=== PATIENT | male | born 1990 | race Caucasian/White ===

== ENCOUNTER 2019-01-12 21:13 | Emergency (ER) | payer SELFPAY ==
[~2019-01-12] VITALS: Ht 188 cm; Wt 64.9 kg
[2019-01-12] MEDS ORDERED: BACTRIM DS TAB1 EACH PO (22:16)
== END 2019-01-12 22:31 | disposition home or self-care (01) ==
LOC: ED 21:13
PROC: 0H9KXZZ Drainage of Right Lower Leg Skin, External Approach (ICD-10-PCS; principal; 2019-01-12)
DX: L02.415 Cutaneous abscess of right lower limb (principal); F17.200 Nicotine dependence, unspecified, uncomplicated
CPT/HCPCS: 10060; 87070; 87077; 87186; 87205; 99283-25

== ENCOUNTER 2021-12-12 11:23 | Emergency (ER) | payer BC ==
[~2021-12-12] VITALS: Ht 188 cm; Wt 70.2 kg
[~2021-12-12 11:23] MED LIST: BACTRIM DS TAB1 EACH PO
[2021-12-12] MEDS ORDERED: REMERON15 MG (14:10)
[2021-12-12] MEDS ORDERED: DOXYCYCLINE HY100 MG PO (14:22)
== END 2021-12-12 15:53 | disposition home or self-care (01) ==
LOC: ED 11:23
DX: L02.01 Cutaneous abscess of face (principal); F17.200 Nicotine dependence, unspecified, uncomplicated; Z79.899 Other long term (current) drug therapy
CPT/HCPCS: 10060; 99283-25

== ENCOUNTER 2024-12-11 02:50 | Inpatient (IN) | payer OTHER ==
[~2024-12-11] VITALS: Ht 188 cm; Wt 73.3 kg
[2024-12-11] VITALS (39 sets, daily range): BP systolic 84–122; BP diastolic 45–79
[~2024-12-11 02:50] MED LIST changes: +DOXYCYCLINE HY100 MG PO; +REMERON15 MG; +TRAMADOL HCL50 MG PO
[2024-12-11 03:04] LABS: BASOPHILS 0.5 % (0.2-1.2); EOSINOPHILS 1.7 % (0.8-7.0); LYMPHOCYTES 26.3 % (21.8-53.1); MCH 31.9 PG (25.7-32.2); MCHC 33.1 g/dL (32.3-36.5); MCV 96.2 fL (79.0-92.2); MONOCYTES 8.6 % (5.3-12.2); NEUTROPHILS 62.5 % (34.0-67.9); RBC 4.52 M/uL (4.63-6.08)
[2024-12-11] MEDS ORDERED: SODIUM CHLORIDE 0.9% 1,000 ML IV SCH (03:15)
[2024-12-11 03:27] LABS: ALCOHOL, MEDICAL 181 ng/dL (<3); ALT (SGPT) 19 U/L (14-59); AST (SGOT) 16 U/L (15-37); GLOMERULAR FILTRATION RATE,EST 105 mL/min (>60); PROTEIN, TOTAL 7.3 g/dL (6.4-8.2); TSH, 3RD GENERATION 0.978 uIU/mL (0.358-3.740); UREA NITROGEN 14 mg/dL (7-18)
[2024-12-11 03:36] LABS: BLOOD/HGB, URINE NEGATIVE (Negative); KETONE, URINE NEGATIVE (Negative); LEUK ESTERASE, URINE NEGATIVE (negative); NITRITE, URINE NEGATIVE (negative)
[2024-12-11 03:59] LABS: AMPHETAMINES, URINE NEGATIVE (NEGATIVE); BARBITURATES, URINE NEGATIVE (NEGATIVE); BENZODIAZEPINE, URINE NEGATIVE (NEGATIVE); CANNABINOID, URINE POSITIVE (NEGATIVE); COCAINE, URINE POSITIVE (NEGATIVE); ECSTASY, URINE NEGATIVE (NEGATIVE); FENTANYL, URINE NEGATIVE (NEGATIVE); METHADONE, URINE NEGATIVE (NEGATIVE); OPIATES, URINE NEGATIVE (NEGATIVE); OXYCODONE, URINE NEGATIVE (NEGATIVE); PHENCYCLIDINE, URINE NEGATIVE (NEGATIVE)
[2024-12-11] MEDS ORDERED: LACTATED RINGER'S 1,000 ML IV SCH (09:15)
[2024-12-11] MEDS ORDERED: ACETAMINOPHEN 325 MG TAB PO PRN (09:15)
--- NOTE | 2024-12-11 09:42 | NUR ---
INTO ER TO SPEAK WITH STAFF. [facility]CS AWARE OF PATIENT AND WILL MAKE CONTACT WHEN THE PATIENT HE IS MEDICALLY CLEARED. PER ER MD AND STAFF PATIENT HAS GIVEN PERMISSION TO SPEAK WITH HIS MOTHER BAYLEE. SPOKE WITH BAYLEE, SHE STATES THIS IS THE PATIENT SECOND SUICIDE ATTEMPT VIA OD. REPORTS PATIENT ATEEMPT SUICIDE ON MOTHER DAY WITH FENTANYL. MOTHER STATES PATIENT HAS BEEN EXPERIANCING ISSUES WITH SUICIDAL IDEATION SINCE MARCH 2024. HE CURRENTLY LIVES WITH HIS BROTHER, BUT HIS BROTHER IS NOT ABLE TO SUPERVISE HIM AT ALL TIMES. UPDATED ABOUT THE PLAN TO ADMIT TO CCU. UPDATE REGARDING POSSIBE TRANSFER TO [facility] WHEN MEDICALLY CLEARED. CCU STAFF UPDATED.
--- NOTE | 2024-12-11 10:20 | NUR ---
REPORT RECEIVED FROM MINE MCBRIDE. PT BROUGHT TO ROOM 127 CCU ADMITTED FOR INTENTIONAL OD OF CLONIDINE WITH HYPOTENSION. PT IS AROUSABLE, ALERT AND ORIENTED, DROWSY. DOPAMINE DRIP IS INFUSING AT 5MCG/KG/MIN, WILL TITRATE DOWN TO 4 MCG/KG/MIN, BP 122/73, HR 80'S, SINUS RHYTHM. PT DENIES ANY SX AT THIS TIME, DENIES PAIN OR SOB. HE WENT BACK TO SLEEP QUICKLY AFTER GETTING HIMSELF FROM GURNEY TO BED, WAS SLIGHTLY UNSTEADY ON FEET. PT IS ON DIRECT OBS SUICIDE PRECAUTIONS PER POLICY AT THIS TIME.
--- NOTE | 2024-12-11 11:11 | NUR ---
CALLED [facility], SPOKE WITH RADHA. DISCUSSED PATIENT NEED FOR [facility]UTE [facility]. PER RADHA THEY DO HAVE BEDS AVAILABLE AT THIS TIME. REQUESTING REFERRAL BE SENT WHEN PATIENT IS MEDICALLY CLEARED. WILL NEED COVID TEST PRIOR TO ADMISSION, WILL DISCUSS WITH MD.
[2024-12-11] MEDS ORDERED: PHARMACY RENAL DOSE ADJUSTMENT 1 DOSE MISC PO SCH (12:00)
--- NOTE | 2024-12-11 12:05 | NUR ---
MOM IN TO SEE PT. DIRECT OBS CONTINUES. PT DOES NOT WANT HIS LUNCH.
--- NOTE | 2024-12-11 13:54 | NUR ---
PT CONT TO REST IN BED, STILL VERY DROWSY, CONT WITH 1:1 OBS.
--- NOTE | 2024-12-11 14:25 | NUR ---
CALL FROM KORTNEY WITH [facility], HE STATES THEY WILL BE COMING OVER TO TALK WITH PTS FAMILY MEMBER AND WILL STOP BY TO SEE IF PT IS WANTING TO TALK.
--- NOTE | 2024-12-11 15:50 | NUR ---
SPOKE WITH KORTNEY ([facility]) LET HIM KNOW WE HAVE THE PACKET FILLED OUT FOR [facility] AND THEY ARE WILLING TO ACCEPT ONCE PATIENT IS MEDICALLY CLEARED. LET HIM KNOW WE WOULD REACH OUT IF WE HAVE QUESTIONS OR CONCERNS. 3620- SPOKE WITH THE PATIENT. PATIENT AGREEABLE TO GO [facility].
--- NOTE | 2024-12-11 15:53 | NUR ---
DOPAMINE TITRATED DOWN. CCS HAS JUST FINISHED WITH SEEING PT, DISCUSSED WITH CASE MANAGEMENT. MD IN ROOM TO SEE PT, SHOWN RECENT EKG. PT CONT TO DENY NEEDS, DENIES PAIN. 1:1 OBS CONTINUES.
--- NOTE | 2024-12-11 15:58 | EKG ---
[facility] [address] [facility] [place] [address] Signed Otherwise normal ECG No previous ECGs available Confirmed by Sarah Norton MD () on 12/11/2024 3:58:28 PM Electronically Signed By: SARAH NORTON MD 12/11/24 1558 PATIENT NAME: KAMARI ACOSTA MOJICA Electrocardiogram DATE OF : [birth year] PHYSICIAN: SARAH NORTON MD REPORT #: [id number] REPORT IS CONFIDENTIAL AND NOT TO BE RELEASED WITHOUT AUTHORIZATION
--- NOTE | 2024-12-11 15:59 | EKG ---
[facility] [address] [facility] [place] [address] Signed Normal sinus rhythm ST elevation, probably due to early repolarization Borderline ECG When compared with ECG of 11-DEC-2024 03:00, T wave amplitude has increased in Lateral leads Confirmed by Sarah Norton MD () on 12/11/2024 3:59:50 PM Electronically Signed By: SARAH NORTON MD 12/11/24 1559 PATIENT NAME: KAMARI ACOSTA MOJICA Electrocardiogram DATE OF : [birth year] PHYSICIAN: SARAH NORTON MD REPORT #: [id number] REPORT IS CONFIDENTIAL AND NOT TO BE RELEASED WITHOUT AUTHORIZATION
[2024-12-11] MEDS ORDERED: NICOTINE 21 MG/24 HR 1 EA TDSY TD SCH (16:01)
[2024-12-11] MEDS ORDERED: FOLIC ACID 1 MG/0.2 ML ML IV SCH (16:02)
[2024-12-11] MEDS ORDERED: THIAMINE HCL 200 MG/2 ML VIAL IV SCH (16:02)
--- NOTE | 2024-12-11 16:04 | NUR ---
MED REC COMPLETE
--- NOTE | 2024-12-11 19:40 | NUR ---
HANDOFF REPORT RECEIVED FROM DAY SHIFT RN. PATIENT LAYING AWAKE IN BED WATCHING TV. 1:1 SITTER AT BEDSIDE FOR PATIENT SAFETY. NO NEEDS AT THIS TIME.
--- NOTE | 2024-12-11 20:18 | NUR ---
DOPAMINE GTT TURNED OFF PER MEDICATION FLOWSHEET. IVF INFUSING PER EMAR. IV SITE WNL. 1:1 SITTER REMAINS AT BEDSIDE, PATIENT HAS NO NEEDS AT THIS TIME.
--- NOTE | 2024-12-11 21:32 | NUR ---
PATIENT RESTING IN BED WITH EYES CLOSED, RR 16. PATIENT REMAINS OFF DOPAMINE GTT, LAST BP 106/79 MAP 87. PATIENT REMAINS ON ROOM AIR, SPO2 98%. IVF INFUSING PER EMAR, SITE WNL. 1:1 SITTER REMAINS AT BEDSIDE, PATIENT HAS NO NEEDS AT THIS TIME.
--- NOTE | 2024-12-11 23:05 | NUR ---
patient awake, repositioned in bed. patient denies any needs at this time. patient has call light in reach, bed alarm on.
--- NOTE | 2024-12-11 23:20 | NUR ---
patient awake, states he had a bad dream. patient provided with orange juice per request. no further needs at this time. vital signs stable. IVF infusing per EMAR, site WNL. 1:1 sitter remains at bedside.
[2024-12-12] VITALS (12 sets, daily range): BP systolic 105–126; BP diastolic 59–88
--- NOTE | 2024-12-12 00:13 | NUR ---
patient awake, patient states he is unable to sleep. patient provided with a warm blanket. 1:1 sitter remains at bedside. no further needs at this time
[2024-12-12] MEDS ORDERED: MELATONIN 3 MG TAB PO ONE (00:45)
--- NOTE | 2024-12-12 00:52 | NUR ---
CALLED AND UPDATED THAT PATIENT IS UNABLE TO SLEEP. NEW ORDER RECEIVED FOR MELATONIN PER EMAR, ORDER VERIFIED VIA REPEAT BACK METHOD.
--- NOTE | 2024-12-12 02:00 | NUR ---
patient resting in bed with eyes closed, respirations even and unlabored. patient has no needs at this time. 1:1 sitter remains at bedside. patient vital signs stable.
[2024-12-12 05:23] LABS: BASOPHILS 0.4 % (0.2-1.2); EOSINOPHILS 1.7 % (0.8-7.0); LYMPHOCYTES 18.4 % (21.8-53.1); MCH 32.2 PG (25.7-32.2); MCHC 33.0 g/dL (32.3-36.5); MCV 97.6 fL (79.0-92.2); MONOCYTES 9.7 % (5.3-12.2); NEUTROPHILS 69.5 % (34.0-67.9); RBC 4.25 M/uL (4.63-6.08)
--- NOTE | 2024-12-12 05:49 | NUR ---
PATIENT USES URINAL TO VOID 600CC. PATIENT REQUEST BLINDS BE PULLED DOWN SO HE CAN SLEEP MORE. BLINDS PULLED DOWN PER REQUEST, PATIENT HAS NO FURTHER NEEDS AT THIS TIME. 1:1 SITTER REMAINS AT BEDSIDE. PATIENT VITALS STABLE. IVF INFUSING PER EMAR, SITE WNL.
[2024-12-12 05:50] LABS: ALT (SGPT) 17.0 U/L (14-59); AST (SGOT) 14.0 U/L (15-37); GLOMERULAR FILTRATION RATE,EST 122.0 mL/min (>60); PHOSPHORUS, INORGANIC 3.3 mg/dL (2.5-4.9); PROTEIN, TOTAL 6.3 g/dL (6.4-8.2); UREA NITROGEN 13.0 mg/dL (7-18)
--- NOTE | 2024-12-12 07:49 | NUR ---
UR CLINICAL REVIEW: BONNIE, MEETS INPT FOR DRUG OVERDOSE. IV FLUIDS, IV MEDS, HYPOTENSION REQUIRING IV DOPAMINE, CIWA PROTOCOL ODS [facility] INPT 12/11/2024 @ 0913 ORDER MATCHES REG AUTH PENDING, WILL SEND CLINICAL INFORMATION PLAN TO DC TO PSYCHIATRIC TREATMENT UNIT AT [facility] WHEN MEDICALLY READY. 12/17/2024
[2024-12-12] MEDS ORDERED: MULTIVITAMINS THERAPEUTIC 1 EA TAB PO SCH (08:00)
--- NOTE | 2024-12-12 08:43 | NUR ---
report to in care meeting - aware of kcl 3.5
--- NOTE | 2024-12-12 08:47 | NUR ---
PT MEDICALLY CLEARED PER DR PRADO VERBAL ORDER. IV SL AT THIS TIME PER VERBAL ORDER.
--- NOTE | 2024-12-12 09:19 | NUR ---
PT BACK TO CCU ROOM AFTER SHOWER. PT SHOWERED INDEPENDENTLY, DIRECT OBS SITTER AT SIDE. PT COMPLETED ORAL CARE AND WAS PROVIDED WITH FRESH SCRUB PANTS. LINEN CHANGE COMPLETED. PROVIDED WITH ORANGE JUICE IN SAFE CUP PER REQUEST. SITTER REMAINS AT BEDSIDE, DENIES FURTHER NEEDS
--- NOTE | 2024-12-12 10:05 | NUR ---
PT RESTING IN BED, WATCHING TV. DENIES NAUSEA/VOMITING, REPORTS FEELING GENERALLY WEAK. ABLE TO REPOSITION SELF. SITTER AT BEDSIDE, DENIES NEEDS
--- NOTE | 2024-12-12 10:22 | NUR ---
VISITED DURING SPIRITUAL CARE ROUNDS. PT TALKED OPENLY OF STRUGGLES WITH MENTAL HEALTH, SURPRISE AT SUPPORT HE RECEIVED, INTENT TO SEEK HEALING. RAIL GANG SUPERVISOR PROVIDED SUPPORTIVE PRESENCE, HOSPITALITY, PRAYER, FACILITATED INTERACTION WITH THERAPY ANIMAL. PT EXPRESSED GRATITUDE, HOPE.
--- NOTE | 2024-12-12 11:18 | NUR ---
CHART FAXED TO [facility]. PATIENT MEDICALLY READY FOR DC. WILL AWAIT BED AVAILABILITY.
--- NOTE | 2024-12-12 11:25 | NUR ---
PT RESTING IN BED, EYES CLOSED. AWAKENS TO VERBAL STIMULI. SITTER REMAINS AT BEDSIDE FOR 1:1 OBSERVATION. PT DENIES NEEDS AT THIS TIME
--- NOTE | 2024-12-12 11:25 | NUR ---
PATIENT SLEEPING IN ROOM WITH NURSING STAFF AT BEDSIDE. WILL UPDATE HIM WHEN HE IS AWAKE. AWAITING TO HEAR BACK ABOUT BED AVAILABILITY AT THIS TIME.
--- NOTE | 2024-12-12 11:53 | NUR ---
CALLED [facility] TO VERIFY THEY RECEIVED FAX. THEY HAVE NOT YET REVIEWED HIS CHART FOR ADMISSION. THEY ARE GOING TO ENTER INFORMATION NOW.
--- NOTE | 2024-12-12 12:10 | NUR ---
PT RESTING IN BED, WATCHING TV. SITTER AT BEDSIDE. PT DENIES NAUSEA, VOMITING, OR HEADACHE. REPORTS WEAKNESS REMAINS ABOUT THE SAME, REPORTS FEELING TIRED. LUNCH DELIVERED TO ROOM ON SAFE TRAY, PROVIDED WITH ORANGE JUICE PER REQUEST. NO OTHER NEEDS
--- NOTE | 2024-12-12 13:00 | NUR ---
PT ATE ENTIRETY OF LUNCH, NOW RESTING WITH EYES CLOSED. PT REPORTS FEELING COMFORTABLE AT THIS TIME, DENIES NEEDS. SITTER AT BEDSIDE FOR DIRECT OBS
--- NOTE | 2024-12-12 13:10 | NUR ---
SPOKE WITH RADHA AT [facility]. INFORMED PATIENT IS MEDICALLY READY AND UPDATES WERE FAXED THIS AM AROUND 1100. STATES THEY WILL NEED COVID TEST AND TO REPORT.
--- NOTE | 2024-12-12 14:08 | NUR ---
RECEIVED CALL FROM RADHA AT [facility]. PATIENT HAS BEEN ACCEPTED TO [facility]. INSTRUCTED TO CALL [phone] TO SET UP ADMIT TIME/TRANSPORT.
--- NOTE | 2024-12-12 14:11 | NUR ---
SPOKE WITH SEBASTIÁN AT [facility]. PATIENT WILL BE ADMITTED TO BED# 5E19
--- NOTE | 2024-12-12 14:26 | NUR ---
CALLED AND SPOKE WITH [facility] OF [facility], THEY ARE UNABLE TO TRANSPORT UNTIL TOMORROW. CALLED [facility] TO SCHEDULE SECURE TRANSPORT TO [address], OR [facility]. THEY WILL CALL BACK WITH TRANSPORTATION OPTIONS.
--- NOTE | 2024-12-12 14:29 | NUR ---
PT RESTING IN BED, DENIES NEEDS. SITTER AT BEDSIDE
--- NOTE | 2024-12-12 15:35 | NUR ---
PT RESTING IN BED, SITTER AT BEDSIDE. DENIES NEEDS AT THIS TIME.
--- NOTE | 2024-12-12 15:58 | NUR ---
SPOKE WITH [facility] TRANSPORT, SOONEST TRANSPORT TIME WILL BE TOMORROW MORNING. STAFF UPDATED, THEY WILL NOTIFY PATIENT. DR. PRADO UPDATED WELL.
--- NOTE | 2024-12-12 16:04 | NUR ---
RECEIVED CALL FROM [facility]. CANELO FROM [facility] WILL BE PICKING PATIENT UP FOR TRANSPORT AT 0630. DR. PRADO AND NURSING STAFF, PATIENT AND HIS MOTHER UPDATED.
[2024-12-12] MEDS ORDERED: VITAMIN B-1100 MG PO (16:17)
[2024-12-12] MEDS ORDERED: FOLIC ACID1 MG PO (16:17)
[2024-12-12] MEDS ORDERED: NICOTINE1 EAC2 TD (16:17)
--- NOTE | 2024-12-12 16:30 | NUR ---
PT RESTING IN BED, MOM AT BEDSIDE. PT DENIES ANY THOUGHTS OR CONCERNS FOR SUICIDAL IDEATION AT THIS MOMENT, STILL HIGH RISK ON SCALE DUE TO RECENT ATTEMPT. 1:1 SITTER AT BEDSIDE.
--- NOTE | 2024-12-12 18:00 | NUR ---
PT RESTING IN BED, SITTER AT BEDSIDE. PT WATCHING TV, NO DISTRESS NOTED. DENIES NAUSEA, VOMITING, OR HEADACHE. DENIES FURTHER NEEDS AT THIS TIME
--- NOTE | 2024-12-12 19:30 | NUR ---
handoff report received from day shift, RN. patient resting in bed, watching tv. no needs at this time. 1:1 sitter remains at patient bedside for patient safety.
--- NOTE | 2024-12-12 20:14 | NUR ---
patient provided with orange juice. IV saline locked and WNL. patient updated on plan of care for the night. patient has no needs at this time. 1:1 sitter remains at bedside of patient safety.
[2024-12-12] MEDS ORDERED: MELATONIN 3 MG TAB PO PRN (21:00)
--- NOTE | 2024-12-12 21:55 | NUR ---
patient up to bathroom to void, brush teethe, and wash face. this RN and sitter in room. patient back to bed, new blankets provided. patient vital signs taken, and WNL. patient has no further needs at this time. 1:1 sitter remains at patient bedside for patient safety.
--- NOTE | 2024-12-12 23:50 | NUR ---
patient resting in bed with eyes closed, RR 16. patient has no needs at this time. 1:1 sitter remains at bedside for patient safety.
[2024-12-13 02:02] VITALS: BP 123/81
--- NOTE | 2024-12-13 04:20 | NUR ---
PATIENT RESTING IN BED WITH EYES CLOSED, RR 13. NO ACUTE DISTRESS NOTED. 1:1 SITTER REMAINS AT PATIENT BEDSIDE. PATIENT HAS NO NEEDS AT THIS TIME.
--- NOTE | 2024-12-13 06:03 | NUR ---
report called to Ivan at [facility]. all questions answered.
[2024-12-13 06:10] VITALS: BP 115/80
--- NOTE | 2024-12-13 06:35 | NUR ---
PATIENT LEFT THE UNIT WITH HERI FROM [facility]SP[facility] TO BE TAKEN TO [facility]. ALL PATIENT BELONGING SENT WITH PATIENT. PATIENT IV SITE D/C AND WNL. PATIENT NICOTINE PATCH REMOVED. VITAL SIGNS STABLE.
[2024-12-13] MEDS ORDERED: THIAMINE HCL 100 MG TAB PO SCH (08:00)
[2024-12-13] MEDS ORDERED: FOLIC ACID 1 MG TAB PO SCH (08:00)
== END 2024-12-13 06:35 | DRG 918 ==
LOC: ED 02:50 → CCU 09:18
PROVIDERS: Family Medicine; ADMIT Family Medicine; ATTEND Family Medicine
DX: T46.5X2A Poisoning by other antihypertensive drugs, intentional self-harm, initial encounter (principal); R45.851 Suicidal ideations; I95.9 Hypotension, unspecified; F14.90 Cocaine use, unspecified, uncomplicated; F10.90 Alcohol use, unspecified, uncomplicated; F12.90 Cannabis use, unspecified, uncomplicated; F32.A Depression, unspecified; F17.210 Nicotine dependence, cigarettes, uncomplicated
CPT/HCPCS: 36415; 80053; 80307; 81003; 83735; 84100; 84443; 84484; 85025; 93005; 93010; G0480; J1265; J2405; J3411; J7030; J7121; U0002